=== PATIENT | female | born 1980 | race Two or more races ===

== ENCOUNTER 2020-08-02 12:17 | Outpatient (CLI) | payer BC ==
--- NOTE | 2020-08-02 14:56 | XRAY Report ---
PROCEDURE: Lumbar Spine 2 View INDICATIONS: LOW RIGHT BACK AND DEEP PELVIS PAIN TECHNIQUE: 2 views of the lumbar spine were acquired. COMPARISON: None. FINDINGS: Bones: 5 [id number] vertebrae are present. There is normal bony alignment. No vertebral body compression fractures. No suspicious bony lesions. Soft tissues: Overlying bowel gas pattern is normal. No suspicious soft tissue calcifications. IMPRESSION: Normal lumbar spine x-ray. Reviewed by: Robbie Landeros on 08/02/2020 2:54 PM [facility] Approved by: Robbie Landeros on 08/02/2020 2:54 PM [facility] Station ID: [id number]
--- NOTE | 2020-08-02 14:57 | XRAY Report ---
PROCEDURE: SI Joints INDICATIONS: LOW RIGHT BACK AND DEEP PELVIS PAIN TECHNIQUE: 3 views of the sacroiliac joints were acquired. COMPARISON: None FINDINGS: Bones: No bony erosions or ankylosis. No suspicious bony lesions. No fractures. Soft tissues: Overlying bowel gas pattern is normal. No suspicious soft tissue densities. IMPRESSION: Normal sacroiliac joints. Reviewed by: Robbie Landeros on 08/02/2020 2:55 PM [facility] Approved by: Robbie Landeros on 08/02/2020 2:55 PM [facility] Station ID: [id number]
--- NOTE | 2020-08-02 14:58 | XRAY Report ---
PROCEDURE: Hip w/Pelvis 2-3V RT INDICATIONS: LOW RIGHT BACK AND DEEP PELVIS PAIN TECHNIQUE: AP pelvis with lateral view(s) of the right hip(s). COMPARISON: None. FINDINGS: Bones: No fractures or dislocations. Pelvic ring appears intact. No suspicious bony lesions. Soft tissues: The visualized bowel gas pattern is normal. No suspicious soft tissue calcifications. IMPRESSION: Normal pelvis and right hip. Reviewed by: Robbie Landeros on 08/02/2020 2:56 PM PST Approved by: Robbie Landeros on 08/02/2020 2:56 PM PST Station ID: [id number]
== END 2020-08-02 12:18 | disposition home or self-care (01) ==
LOC: DI 12:17
PROVIDERS: ATTEND Nurse Practitioner Family
DX: M54.5 Low back pain (principal); M25.551 Pain in right hip